=== PATIENT | female | born 1985 | race Two or more races ===

== ENCOUNTER 2025-05-17 22:14 | Emergency (ER) | payer MEDICAID ==
[2025-05-17] MEDS: Amoxicillin/Clavulanate K 875-125 MG Tab PO ONE (22:54)
== END 2025-05-17 22:59 | disposition home or self-care (01) ==
LOC: MW.ED 22:14
DX: S61.551A Open bite of right wrist, initial encounter (principal); I48.91 Unspecified atrial fibrillation; E11.9 Type 2 diabetes mellitus without complications; Z75.3 Unavailability and inaccessibility of health-care facilities; Z79.84 Long term (current) use of oral hypoglycemic drugs; Z91.040 Latex allergy status; W55.01XA Bitten by cat, initial encounter
CPT/HCPCS: 99283; A9270; 99282